=== PATIENT | female | born 1960 | race African-American/Black ===

== ENCOUNTER 2018-06-30 15:43 | Emergency (ER) | payer MEDICAID ==
[~2018-06-30] VITALS: Ht 162.6 cm; Wt 95.3 kg
[2018-06-30 15:46] VITALS: BP 164/85
--- NOTE | 2018-06-30 15:50 | NUR ---
ED Nurse Note: Patient walked into ED c/o pain on the right hand/fingers patient reports she was at the nail salon 2 weeks ago, patient reports pain/swelling on the right thumb, spreading to her other fingers.
[2018-06-30] MEDS ORDERED: ADVAIR 250-501 EACH INH (15:51)
[2018-06-30] MEDS ORDERED: HYDROCHLOROTHIA25 MG ORAL (15:51)
[2018-06-30] MEDS ORDERED: ALBUTEROL2.5 MG/3 M INH (15:51)
[2018-06-30] MEDS ORDERED: ATORVASTATIN CA20 MG ORAL (15:51)
--- NOTE | 2018-06-30 16:14 | Emergency Room Report ---
History of Present Illness General Chief Complaint: Pain Source: Patient Present Illness HPI 58 female patient presents the ER complaining of right thumb infection. Reports he is right-hand dominant. Reports that approximately 2 weeks ago she got her "nails done". Reports that she noticed swelling and pain symptoms beginning a few days later. Reports she returned to the nail salon yesterday to have them remove the nail. Reports that she was told she has a fungal infection underneath her nail was begun on antifungal medication. Also reports swelling and redness around her thumb nail. Reports has been "soaking" her finger and the swelling has "gone up and down". Denies drainage. Reports decreased range of motion secondary to pain. Denies fever, chest pain, shortness of breath. Denies other aggravating or relieving factors. Allergies: Coded Allergies: ACETAMINOPHEN (Verified Allergy, Unknown, 06/30/18) HYDROCODONE (Verified Allergy, Unknown, 06/30/18) IBUPROFEN (Verified Allergy, Unknown, 06/30/18) Patient History Past Medical History: see triage record Last Menstrual Period: menopause Reviewed Nursing Documentation: PMH: Agreed; PSxH: Agreed Nursing Documentation-PMH Past Medical History: No Stated History Hx Hypertension: Yes Review of Systems All Other Systems: negative except mentioned in HPI Physical Exam Vital Signs Date Time Temp Pulse Resp B/P (MAP) Pulse Ox O2 Delivery O2 Flow Rate FiO2 06/30/18 15:46 97.5 68 18 164/85 96 Room Air Sp02 EP Interpretation: reviewed, normal General Appearance: well appearing, no apparent distress, alert, GCS 15, non- toxic Head: normocephalic, atraumatic Eyes: bilateral eye normal inspection, bilateral eye PERRL ENT: hearing grossly normal, normal pharynx, no angioedema, normal voice, uvula midline, moist mucus membranes Neck: full range of motion Respiratory: lungs clear, normal breath sounds, no rhonchi, no respiratory distress, no accessory muscle use, no wheezing, speaking full sentences Cardiovascular #1: regular rate, rhythm, no edema Cardiovascular #2: 2+ radial (R), 2+ radial (L) Musculoskeletal: back normal, gait/station normal, normal range of motion, swelling, other - Erythema surrounding right thumb nail, no fusiform swelling, finger not held in flexion or extension, cap refill less than 2 seconds, no tenderness palpation over flexor tendon, tender - Right thumb proximal to fingernail Psychiatric: mood/affect normal Skin: other - Onychomycosis noted of right thumb nail Procedures Incision and Drainage Incision and Drainage : Consent: Verbal Site: Right thumb Blade Size: 11 I & D Procedure: betadine prep, sterile drapes applied, sterile dressing applied Wound Location: upper extremity Wound's Depth, Shape: superficial Wound Length (cm): 1 Irrigated w/ Saline (ccs): 20 Anesthesia: 1% Lidocaine, other - topical LET Splint Applied?: No Sling Applied?: No Patient Tolerated: Well Complications: None Medical Decision Making PA Attestation Dr. Campo is my supervising Physician whom patient management has been discussed with. Diagnostic Impression: Primary Impression: Cellulitis of thumb, right Additional Impression: Onychomycosis ER Course Pt. presents to the ED c/o right thumb pain and swelling. Ddx considered but are not limited to rash, cellulitis, abscess, felon, paronychia, hangnail, herpetic jazlyn, fungal infection, flexor tenosynovitis. Negative Kanaval signs, low suspicion for flexor tenosynovitis. Vital signs: are WNL, pt. is afebrile Ordered Bacitracin and Lidocaine ED COURSE: Likely cellulitis versus paronychia, will attempt I&D drainage in the ER. Digital block of finger performed with lidocaine and topical anesthesia with L ET. I&D of paronychia performed. No pus expressed, mild blood. Likely cellulitis, will provide patient with oral and topical antibiotics. Sterile dressing and Bacitracin applied to wound following procedure. Patient instructed to keep wound clean and dry and to follow-up with primary care provider in 24 hours for wound check. Continue use antifungal medication as previously instructed. Patient states that she is able to take Tylenol No. 3, states she is not allergic to Tylenol No. 3. Reports that she is allergic to ibuprofen. Do not take prior to drinking, driving, operating machinery, may cause drowsiness. Take regular Tylenol following completion of Tylenol No. 3 medication. Provided with work note. Seen and evaluated by Dr. Campo who agrees with assessment treatment plan. DISCHARGE At this time pt. is stable for d/c to home. Patient resting comfortably, in no acute distress, nontoxic appearing, laughing and smiling. Will provide printed patient care instructions and any necessary prescriptions. Care plan and follow up instructions have been discussed with the patient prior to discharge. Patient instructed to follow-up with primary care provider in 2 - 3 days for wound recheck. Patient questions asked and answered. Patient reports understanding and agreement to treatment plan. ER precautions given. Patient instructed to return to ER immediately for any new or worsening of symptoms including but not limited to fever, worsening of pain symptoms, worsening of erythema, red streaking. - Please note that this Emergency Department Report was dictated using [employer] truck operator technology software, occasionally this can lead to erroneous entry secondary to interpretation by the dictation equipment. Last Vital Signs Date Time Temp Pulse Resp B/P (MAP) Pulse Ox O2 Delivery O2 Flow Rate FiO2 06/30/18 15:46 97.5 68 18 164/85 96 Room Air Status: improved Disposition: HOME, SELF-CARE Condition: Stable Scripts Acetaminophen With Codeine (T#3) (TYLENOL #3 TAB*) Y Tab 1 TAB ORAL Q6HR PRN for For Pain, #8 TAB Prov: Sathish Longoria 06/30/18 Trimethoprim/Sulfamethoxazole 160/800* (BACTRIM DS TABLET*) 1 Each Tablet 1 TAB ORAL TWICE A DAY for 7 Days, #14 TAB Prov: Sathish Longoria 06/30/18 Cephalexin* (KEFLEX*) 500 Mg Capsule 500 MG ORAL EVERY 12 HOURS for 7 Days, #14 CAP 0 Refills Prov: Sathish Longoria 06/30/18 Bacitracin/Polymyxin B Sulfate (BACITRACIN-POLYMYXIN OINTMENT) 28.35 Gm Oint...g. 1 APPLIC TP BID, #28 GM Prov: Sathish Longoria 06/30/18 Patient Instructions: Cellulitis, [id number], Nail Ringworm, Paronychia, Easy -to-Read Additional Instructions: Return to ER or follow-up with primary care provider in 24 hours for wound check. Keep clean and dry. Apply topical antibiotics as instructed. Topical antifungal as instructed. Take medications as directed. Patient questions asked and answered. ER precautions given, patient instructed to return to ER immediately for any new or worsening of symptoms. Sathish Longoria Jun 30, 2018 16:14
[2018-06-30] MEDS ORDERED: Bacitracin Oint UD TOPIC ONE (16:15)
[2018-06-30] MEDS ORDERED: Lidocaine 1% MPF 10mg/ml 5ml IM ONE (16:15)
[2018-06-30] MEDS ORDERED: LET 3ml Soln TOPIC ONE (16:15)
--- NOTE | 2018-06-30 16:40 | NUR ---
Jaimee elder in EDM - 06/30/18 at 1644 by ESSENCE ED Nurse Note: Patient walked into ED c/o pain on the right hand/fingers patient reports she was at the nail salon 2 weeks ago, patient reports pain/swelling on the right thumb, spreading to her other fingers.
[2018-06-30] MEDS ORDERED: BACTRIM DS TAB1 EAC1 ORAL (16:52)
[2018-06-30] MEDS ORDERED: BACITRACIN-P28.35 GM TP (16:52)
[2018-06-30] MEDS ORDERED: CEPHALEXIN500 MG ORAL (16:52)
[2018-06-30] MEDS ORDERED: ACETAMINOPHEN-1 EAC1 ORAL (16:52)
[2018-06-30 17:07] VITALS: BP 164/85
--- NOTE | 2018-06-30 17:08 | NUR ---
ER DISCHARGE NOTE: Patient is cleared to be discharged per ERMD, pt is aox4, on room air, with stable vital signs. pt was given dc and prescription instructions, pt was able to verbalize understanding, pt id band removed without complications. pt is able to ambulate with steady gait. pt took all belongings.
== END 2018-06-30 17:08 | disposition home or self-care (01) ==
LOC: EMR 16:24
DX: L03.011 Cellulitis of right finger (principal); B35.1 Tinea unguium; I10 Essential (primary) hypertension; Z88.6 Allergy status to analgesic agent
CPT/HCPCS: 10060; 99283; Z7502

== ENCOUNTER 2018-07-03 17:24 | Emergency (ER) | payer MEDICAID ==
[~2018-07-03] VITALS: Ht 162.6 cm; Wt 95.3 kg
[~2018-07-03 17:24] MED LIST: ACETAMINOPHEN-1 EAC1 ORAL; ADVAIR 250-501 EACH INH; ALBUTEROL2.5 MG/3 M INH; ATORVASTATIN CA20 MG ORAL; BACITRACIN-P28.35 GM TP; BACTRIM DS TAB1 EAC1 ORAL; CEPHALEXIN500 MG ORAL; HYDROCHLOROTHIA25 MG ORAL
[2018-07-03 17:39] VITALS: BP 158/79
[2018-07-03] MEDS ORDERED: ADVAIR 100-501 EACH INH (17:42)
--- NOTE | 2018-07-03 17:52 | Emergency Room Report ---
History of Present Illness General Chief Complaint: Wound Recheck/Suture Removal Source: Patient Present Illness HPI 58-year-old female with no significant past medical history here complaining for wound check after drainage of a paronychia on her right thumb 2 days ago. Patient has been taking both of her antibiotics, denies fever or chills, has full range of motion and on the affected side, denies numbness and tingling. Denies any pain in the emergency room today Allergies: Coded Allergies: ACETAMINOPHEN (Verified Allergy, Unknown, 06/30/18) HYDROCODONE (Verified Allergy, Unknown, 06/30/18) IBUPROFEN (Verified Allergy, Unknown, 06/30/18) Patient History Past Medical History: see triage record Past Surgical History: unable to obtain Pertinent Family History: none Now: No Immunizations: UTD Reviewed Nursing Documentation: PMH: Agreed; PSxH: Agreed Nursing Documentation-PMH Hx Hypertension: Yes Hx Asthma: Yes Review of Systems All Other Systems: negative except mentioned in HPI Physical Exam Vital Signs Date Time Temp Pulse Resp B/P (MAP) Pulse Ox O2 Delivery O2 Flow Rate FiO2 07/03/18 17:39 98.8 73 15 158/79 94 Room Air Sp02 EP Interpretation: reviewed General Appearance: normal inspection, well appearing, no apparent distress, alert, GCS 15 Head: normocephalic Eyes: bilateral eye normal inspection, bilateral eye PERRL ENT: normal ENT inspection, normal pharynx Neck: normal inspection, full range of motion, supple Respiratory: normal inspection, chest non-tender, no rhonchi Cardiovascular #1: normal inspection, regular rate, rhythm Gastrointestinal: normal inspection, non tender, soft Rectal: deferred Genitourinary: no CVA tenderness Musculoskeletal: other - drained healing paronychia Neurologic: normal inspection, alert, oriented x3 Psychiatric: normal inspection, judgement/insight normal Skin: normal color, no rash, warm/dry Lymphatic: normal inspection, no adenopathy Medical Decision Making PA Attestation Diagnosis and treatment plans were reviewed and discussed with my supervising physician Dr. Uriostegui Diagnostic Impression: Primary Impression: Encounter for post-traumatic wound check Additional Impression: Paronychia ER Course 58-year-old female with no significant past medical history here complaining for wound check after drainage of a paronychia on her right thumb 2 days ago. Patient has been taking both of her antibiotics, denies fever or chills, has full range of motion and on the affected side, denies numbness and tingling. Denies any pain in the emergency room today Ddx considered but are not limited to wound check, infected wound Vital signs: are WNL, pt. is afebrile H&PE are most consistent with healing wound ORDERS: none required at this time, the diagnosis is clinical ED INTERVENTIONS: None required at this time. DISCHARGE: At this time pt. is stable for d/c to home. Will provide printed patient care instructions, and any necessary prescriptions. Care plan and follow up instructions have been discussed with the patient prior to discharge. Last Vital Signs Date Time Temp Pulse Resp B/P (MAP) Pulse Ox O2 Delivery O2 Flow Rate FiO2 07/03/18 17:39 98.8 73 15 158/79 94 Room Air Disposition: HOME, SELF-CARE Condition: Stable Patient Instructions: Wound Check Additional Instructions: Numbness or tingling in the affected side follow-up with a primary doctorantibiotics Terrance Fraser Jul 03, 2018 17:52
[2018-07-03 17:58] VITALS: BP 145/72
--- NOTE | 2018-07-03 17:58 | NUR ---
ER DISCHARGE NOTE: Pt was seen due to right 5th digit ff up eval. Patient is cleared to be discharged per PA, pt is aox4, on room air, with stable vital signs. pt was given dc instructions, pt was able to verbalize understanding, pt id band removed. pt is able to ambulate with steady gait. pt took all belongings.
== END 2018-07-03 17:58 | disposition home or self-care (01) ==
LOC: EMR 17:54
DX: Z48.00 Encounter for change or removal of nonsurgical wound dressing (principal); L03.011 Cellulitis of right finger; I10 Essential (primary) hypertension; J45.909 Unspecified asthma, uncomplicated
CPT/HCPCS: 99281

== ENCOUNTER 2018-08-04 15:56 | Emergency (ER) | payer MEDICAID ==
[~2018-08-04] VITALS: Ht 162.6 cm; Wt 95.7 kg
[~2018-08-04 15:56] MED LIST changes: +ADVAIR 100-501 EACH INH
--- NOTE | 2018-08-04 16:05 | NUR ---
ED Nurse Note: pt ambulated to Ed from home, c/o right thumb nail infection/green with stabbing pain. Pt had recent fungal medication as well as antibiotics with no relief. Pt is A&O x4.
[2018-08-04] MEDS ORDERED: CLEOCIN150 MG ORAL (16:16)
[2018-08-04] MEDS ORDERED: ACETAMINOPHEN-1 EAC1 ORAL (16:16)
[2018-08-04 16:17] VITALS: BP 165/95
[2018-08-04 16:20] VITALS: BP 152/82
--- NOTE | 2018-08-04 16:21 | NUR ---
ER DISCHARGE NOTE: Patient is cleared to be discharged per ERMD, pt is aox4, on room air, with stable vital signs. pt was given dc and prescription instructions, pt was able to verbalize understanding. pt is able to ambulate with steady gait. pt took all belongings.
--- NOTE | 2018-08-04 17:23 | Emergency Room Report ---
History of Present Illness General Chief Complaint: Pain Source: Patient, Medical Record Present Illness HPI Patient presents emergency department today complaining of right thumb pain and swelling. Patient states that she had a paronychia that was treated a few weeks ago. It was drained and put on antibiotics. She improved but then apparently spent more swollen the last couple of days again. She states that she is been soaking it there is very minimal discharge. She states that there is no fever chest pain or shortness of breath. No other complaints are noted. Symptoms noted to be mild to moderate. She denies any recent trauma. No other modifying factors. No other associated signs and symptoms. No other complaints were noted. Allergies: Coded Allergies: ACETAMINOPHEN (Verified Allergy, Unknown, 06/30/18) HYDROCODONE (Verified Allergy, Unknown, 06/30/18) IBUPROFEN (Verified Allergy, Unknown, 06/30/18) Patient History Past Medical History: HTN, asthma Past Surgical History: none Pertinent Family History: none Social History: Denies: smoking, alcohol use, drug use Last Menstrual Period: menopause Reviewed Nursing Documentation: PMH: Agreed; PSxH: Agreed Nursing Documentation-PMH Past Medical History: No History, Except For Hx Hypertension: Yes Hx Asthma: Yes Review of Systems All Other Systems: negative except mentioned in HPI Physical Exam Vital Signs Date Time Temp Pulse Resp B/P (MAP) Pulse Ox O2 Delivery O2 Flow Rate FiO2 08/04/18 15:59 98.2 65 16 95 Room Air 08/04/18 16:17 165/95 Sp02 EP Interpretation: reviewed, normal General Appearance: normal inspection, well appearing, no apparent distress, alert Head: atraumatic Eyes: bilateral eye normal inspection ENT: normal ENT inspection, hearing grossly normal, normal voice Neck: normal inspection, full range of motion, supple, no bony tend Respiratory: normal inspection, lungs clear, normal breath sounds, no respiratory distress, no retraction, no wheezing Cardiovascular #1: regular rate, rhythm, no edema Gastrointestinal: normal inspection, normal bowel sounds, non tender, soft, no guarding, no hernia Genitourinary: no CVA tenderness Musculoskeletal: back normal, normal range of motion, swelling - Right thumb at the base of the nail no fluctuance noted. Neurologic: normal inspection, alert, responsive, speech normal Psychiatric: normal inspection, judgement/insight normal, mood/affect normal Skin: normal inspection, normal color, no rash Medical Decision Making Diagnostic Impression: Primary Impression: Paronychia ER Course Patient presents to the emergency department today complaining of right thumb pain and swelling. Differential considerations include abscess, cellulitis, paronychia. Patient's exam is consistent with recurrent paronychia. Given that there is no fluctuance at this time this does not require drainage. However I felt the patient require antibiotics. We will start patient on clindamycin recommend close follow-up. Patient is advised to follow up with primary doctor in 2-3 days and return the emergency room for any worsening symptoms and as needed. Last Vital Signs Date Time Temp Pulse Resp B/P (MAP) Pulse Ox O2 Delivery O2 Flow Rate FiO2 08/04/18 16:20 87 18 152/82 95 Room Air 08/04/18 15:59 98.2 Status: improved Disposition: HOME, SELF-CARE Condition: Stable Scripts Acetaminophen With Codeine (T#3) (TYLENOL #3 TAB*) Y Tab 1 TAB ORAL Q4H PRN for For Pain, #10 TAB Prov: Max Cisneros MD 08/04/18 Clindamycin HCl (Clindamycin HCl) 300 Mg Capsule 300 MG ORAL TID for 7 Days, CAP Prov: Max Cisneros MD 08/04/18 Referrals: [facility]ERR[facility] (PCP) Patient Instructions: Fingertip Infection Max Cisneros MD August 04, 2018 17:23
== END 2018-08-04 16:20 | disposition home or self-care (01) ==
LOC: EMR 16:11
DX: L03.011 Cellulitis of right finger (principal); I10 Essential (primary) hypertension; J45.909 Unspecified asthma, uncomplicated; Z88.6 Allergy status to analgesic agent
CPT/HCPCS: 99282

== ENCOUNTER 2019-05-16 13:30 | Emergency (ER) | payer MEDICAID ==
[~2019-05-16] VITALS: Ht 162.6 cm; Wt 95.3 kg
[~2019-05-16 13:30] MED LIST changes: +CLEOCIN150 MG ORAL
[2019-05-16 13:55] VITALS: BP 125/81
--- NOTE | 2019-05-16 13:55 | NUR ---
ED Nurse Note: PT AMBULATED TO ED WITH SHOBHA STATING THAT YESTERDAY HER LEFT LOWER BACK HURT AND IT SHOOTS DOWN LEFT LEG. AO4. NAD. VSS.
[2019-05-16] MEDS ORDERED: Omnipaque-300 100ml vial INJ PRN (14:15)
[2019-05-16] MEDS ORDERED: Morphine Sulfate 2mg/ml Inj(IV/IM USE ONLY) IVP ONE (14:15)
--- NOTE | 2019-05-16 15:05 | NUR ---
ED Nurse Note: iv access established. blood collected; sent down to lab.
[2019-05-16 15:39] LABS: BASOPHILS % (AUTO) 0.6 % (0.0-2.0); EOSINOPHILS % (AUTO) 7.6 % (0.0-3.0); HEMATOCRIT 38.9 % (37.0-47.0); HEMOGLOBIN 12.8 G/DL (12.0-16.0); LYMPHOCYTES % (AUTO) 22.9 % (20.0-45.0); MEAN CORPUSCULAR VOLUME 81 FL (80-99); MONOCYTES % (AUTO) 8.7 % (1.0-10.0); NEUTROPHILS % (AUTO) 60.2 % (45.0-75.0); PLATELET COUNT 256 K/UL (150-450); RED CELL DISTRIBUTION WIDTH 12.7 % (11.6-14.8); WHITE BLOOD COUNT 5.5 K/UL (4.8-10.8)
--- NOTE | 2019-05-16 16:00 | NUR ---
ED Nurse Note: urine collected; sent down to lab.
[2019-05-16 16:02] LABS: ALANINE AMINOTRANSFERASE 27 U/L (12-78); ALBUMIN 3.5 G/DL (3.4-5.0); ALBUMIN/GLOBULIN RATIO 0.8 (1.0-2.7); ALKALINE PHOSPHATASE 62 U/L (46-116); ANION GAP 8 mmol/L (5-15); ASPARTATE AMINO TRANSFERASE 22 U/L (15-37); BILIRUBIN,TOTAL 0.8 MG/DL (0.2-1.0); BLOOD UREA NITROGEN 16 mg/dL (7-18); CALCIUM 9.3 MG/DL (8.5-10.1); CARBON DIOXIDE 29 MMOL/L (21-32); CHLORIDE 102 MMOL/L (98-107); CREATININE 0.6 MG/DL (0.55-1.30); SODIUM 139 MMOL/L (136-145)
[2019-05-16 16:09] LABS: APPEARANCE,URINE CLEAR; BILIRUBIN, URINE NEGATIVE (NEGATIVE); COLOR,URINE PALE YELLOW; GLUCOSE, URINE (UA) NEGATIVE (NEGATIVE); KETONES,URINE NEGATIVE (NEGATIVE); LEUKOCYTE ESTERASE ,URINE NEGATIVE (NEGATIVE); NITRITE,URINE NEGATIVE (NEGATIVE); PH,URINE 6 (4.5-8.0); PROTEIN,URINE NEGATIVE (NEGATIVE); UROBILINOGEN,URINE NORMAL MG/DL (0.0-1.0)
--- NOTE | 2019-05-16 17:19 | Diagnostic Imaging Report ---
Indications: Trauma, low back with radiation to the left leg Technique: Spiral acquisitions obtained through the lumbar spine after IV administration nonionic contrast. Multiplanar reconstructions were generated. Total dose length product 655 mGycm. CTDIvol(s) 19 mGy. Dose reduction achieved using automated exposure control Comparison: none Findings: There is very minimal lumbosacral rotoscoliosis deformity which is likely artifact of positioning. Otherwise normal bony alignment. No acute fractures. No dislocations. Vertebral body heights are preserved. Disc spaces are preserved. There are a few small anterior osteophytes demonstrated. At L3-4, there is circumferential annular bulge. This, in combination with ligamentum flavum and facet hypertrophy, result in borderline narrowing of the spinal canal. The bulging disc may result in minimal compromise of the bilateral neural foramina. The disc space is preserved. There is bilateral facet arthrosis at this level. At L4-5, there is circumferential annular bulge. This, in combination with facet and ligamentum flavum hypertrophy results in moderate narrowing of the spinal canal. There is suggestion of mild compromise of the right neural foramen and mild to moderate compromise of the left neural foramen. There is bilateral facet arthrosis. At the remaining disc levels, no significant disc bulge or protrusion, spinal stenosis, or neural foraminal narrowing. Included extraspinal soft tissues demonstrate uterine calcifications consistent with degenerated fibroids. No unusual contrast enhancing lesion is demonstrated Impression: No acute bony trauma Degenerative changes, as detailed on a level by level basis above The CT scanner at [facility] is accredited by the [employer] and the scans are performed using protocols designed to limit radiation exposure to as low as reasonably achievable to attain images of sufficient resolution adequate for diagnostic evaluation.
--- NOTE | 2019-05-16 17:45 | Emergency Room Report ---
History of Present Illness General Chief Complaint: Pain Source: Patient Present Illness HPI 59-year-old female with history of bulging disks in the lumbar region as well as sciatic pain complaining of sudden onset of worsening pain that started yesterday without any fall or injury. Patient is ambulating with a cane. Denies any saddle paresthesia, urinary or bowel incontinence. Reports that she had a surgery and lumbar region few years ago. Has an orthopedics pediatric physician who she sees. She also has history of sarcoidosis not already taking medication for. Denies chest pain, shortness of breath, palpitation, headache and dizziness. Rates the pain 10 out of 10 with radiation to the left foot. Denies tingling and numbness. Allergies: Coded Allergies: ACETAMINOPHEN (Verified Allergy, Unknown, 06/30/18) HYDROCODONE (Verified Allergy, Unknown, 06/30/18) IBUPROFEN (Verified Allergy, Unknown, 06/30/18) Patient History Past Surgical History: none Pertinent Family History: none Now: No Immunizations: UTD Reviewed Nursing Documentation: PMH: Agreed; PSxH: Agreed Nursing Documentation-PMH Past Medical History: No History, Except For Hx Hypertension: Yes Hx Asthma: Yes Review of Systems All Other Systems: negative except mentioned in HPI Physical Exam Vital Signs Date Time Temp Pulse Resp B/P (MAP) Pulse Ox O2 Delivery O2 Flow Rate FiO2 05/16/19 13:51 98.6 71 18 125/81 (96) 94 Room Air Sp02 EP Interpretation: reviewed, normal General Appearance: no apparent distress, alert, GCS 15, non-toxic Head: normocephalic, atraumatic Eyes: bilateral eye normal inspection, bilateral eye PERRL ENT: hearing grossly normal, normal pharynx, no angioedema, normal voice Neck: full range of motion, supple/symm/no masses Respiratory: chest non-tender, lungs clear, normal breath sounds, no rhonchi, no retraction, no wheezing, speaking full sentences Cardiovascular #1: regular rate, rhythm, no edema, no JVD, no murmur, normal capillary refill Cardiovascular #2: 2+ dorsalis pedis (R), 2+ dorsalis pedis (L) Gastrointestinal: normal bowel sounds, non tender, soft, non-distended, no guarding, no rebound Genitourinary: no CVA tenderness Musculoskeletal: back normal, no calf tenderness, pelvis stable, non-tender Neurologic: alert, motor strength/tone normal, oriented x3, sensory intact, responsive, speech normal Psychiatric: judgement/insight normal, memory normal, mood/affect normal, no suicidal/homicidal ideation Skin: no rash Lymphatic: no adenopathy Medical Decision Making PA Attestation All my diagnosis and treatment plans were reviewed ad discussed with my supervising physician Dr. Ojeda Diagnostic Impression: Primary Impression: Bulging lumbar disc Additional Impression: Sciatica ER Course 59-year-old female with history of bulging disks in the lumbar region as well as sciatic pain complaining of sudden onset of worsening pain that started yesterday without any fall or injury. Patient is ambulating with a cane. Denies any saddle paresthesia, urinary or bowel incontinence. Reports that she had a surgery and lumbar region few years ago. Has an orthopedics pediatric physician who she sees. She also has history of sarcoidosis not already taking medication for. Denies chest pain, shortness of breath, palpitation, headache and dizziness. Rates the pain 10 out of 10 with radiation to the left foot. Denies tingling and numbness. Ddx considered but are not limited to: Lumbar spine sprain, strain, fracture, contusion, neuropathy, bulging lumbar disc, sciatica Vital signs: are WNL, pt. is afebrile H&PE are most consistent with: Nonacute bulging lumbar disc, sciatica ORDERS: Lumbar spine CT scan with contrast, CBC, CMP, UA, tox screen ER intervention: Morphine, Zofran, NS boluses patient reports she feels dehydrated DISCHARGE: At this time pt. is stable for d/c to home. Will provide printed patient care instructions, and any necessary prescriptions. Care plan and follow up instructions have been discussed with the patient prior to discharge. Patient follow orthopedics pediatric physician, at this time nothing is acute, take medication as directed, ambulate with a walker, if worsening symptoms return to the emergency room CT/MRI/US Diagnostic Results CT/MRI/US Diagnostic Results : Imaging Test Ordered: CT scan of lumbar spine with contrast Impression Bulging disc nonacute and lumbar region Last Vital Signs Date Time Temp Pulse Resp B/P (MAP) Pulse Ox O2 Delivery O2 Flow Rate FiO2 05/16/19 13:51 98.6 71 18 125/81 (96) 94 Room Air Status: improved Disposition: HOME, SELF-CARE Condition: Stable Scripts Prednisone* (PREDNISONE*) 20 Mg Tablet 40 MG ORAL DAILY for 5 Days, #10 TAB Prov: Terrance Fraser 05/16/19 Lidocaine Patch* (Lidoderm Patch*) 1 Each Adh..patch 1 PATCH TOPIC DAILY, #30 PATCH Patch(es) may remain in place for up to 12 hours in any 24-hour period. Prov: Terrance Fraser 05/16/19 Methocarbamol* (ROBAXIN-500*) 500 Mg Tablet 500 MG ORAL TID PRN for For Pain, #15 TAB 0 Refills Prov: Terrance Fraser 05/16/19 Patient Instructions: Sciatica With [facility]hab[facility] Additional Instructions: Take medication as directed, follow-up with your primary care provider, you need to be sent to your orthopedics pediatric physician, if worsening symptoms return to the emergency room Terrance Fraser May 16, 2019 17:45
[2019-05-16] MEDS ORDERED: ROBAXIN-500MG ORAL ×3 (17:47→17:59)
[2019-05-16] MEDS ORDERED: PREDNISONE20 MG ORAL ×3 (17:47→17:59)
[2019-05-16] MEDS ORDERED: LIDODERM700 M1 TOPIC ×3 (17:47→17:59)
[2019-05-16 18:00] VITALS: BP 127/79
--- NOTE | 2019-05-16 18:00 | NUR ---
ER DISCHARGE NOTE: Patient is cleared to be discharged per ERMD, pt is aox4, on room air, with stable vital signs. accompanied by family member. pt was given dc and prescription instructions, pt was able to verbalize understanding, pt id band and iv site removed without complications. pt is able to ambulate with steady gait. pt took all belongings.
== END 2019-05-16 18:00 | disposition home or self-care (01) ==
LOC: EMR 14:00
DX: M51.26 Other intervertebral disc displacement, lumbar region (principal); M54.30 Sciatica, unspecified side; I10 Essential (primary) hypertension; Z88.6 Allergy status to analgesic agent
CPT/HCPCS: 36415; 72132; 80053; 81003; 85025; 96361; 96374; 96375; J2270; J2405; J7030; Q9967; Z7502; 99284